=== PATIENT | male | born 1990 | race Caucasian/White ===

== ENCOUNTER 2024-06-06 10:54 | Emergency (ER) | payer BC, SELFPAY ==
[2024-06-06 11:07] VITALS: BP 138/70; PULSE 72; RESP 18; TEMP 38.1; O2SAT 99
--- NOTE | 2024-06-06 11:25 | ED.URI ---
HPI - URI/Sore Throat General Chief Complaint: Upper Respiratory Infection Stated Complaint: Cough/Sore Throat Time Seen by Provider: 06/06/24 11:25 History of Present Illness HPI Narrative: 34 y/o male presented for c/o nasal congestion, sore throat, cough x3 days. Endorses cough is productive. Denies sob, wheezing, n/v/d/f/c. Taking Mucinex and Sudafed for symptoms. Related Data Allergies Allergy/AdvReac Type Severity Reaction Status Date / Time No Known Allergies Allergy Verified 06/06/24 11:17 Review of Systems Review of Systems: CONSTITUTIONAL: Denies body aches, fever, chills, or sweats. EYES: Denies visual changes, redness, or discharge. ENT: reports rhinorrhea, congestion, sore throat CARDIOVASCULAR: Denies chest pain, palpitations, or edema. RESPIRATORY: reports cough Denies dyspnea. GASTROINTESTINAL: Denies abdominal pain, nausea, vomiting, or diarrhea. SKIN: Denies rash MUSCULOSKELETAL: Denies back pain, joint pain, or myalgia. NEUROLOGIC: Denies headache Exam Narrative: GENERAL: mildly Ill-appearing, no acute distress. EYES: conjunctivae clear ENT: Mucous membranes moist. Right TM pearly silva with normal light reflex; Left TM erythematous, bulging and intact; canal not erythematous, no drainage no tragal tenderness. Oropharynx erythematous without lesions. Tonsils not enlarged and without exudate. No drooling, no hoarseness, no trismus, uvula midline. No tripod positioning, hot potato voice, or soft palate swelling. NECK: Supple. No lymphadenopathy CHEST: Clear to auscultation, breath sounds equal. No respiratory distress, speaks in full sentences. HEART: Regular rate and rhythm. No murmur heard. SKIN: Warm, dry, no rash. NEURO: Alert and oriented x3. Course Course Emergency Course: Patient is aware of diagnosis, understands and agrees to treatment plan. Anticipatory guidance given. Patient agrees to follow-up as directed and is aware of reasons to seek care at the emergency department. Portions of this record may have been created with voice recognition software Level of Care: Express Care Visit Vital Signs Vital signs: Vital Signs Temperature 100.5 F H 06/06/24 11:07 Pulse Rate 72 06/06/24 11:07 Respiratory Rate 18 06/06/24 11:07 Blood Pressure 138/70 06/06/24 11:07 Pulse Oximetry 99 06/06/24 11:07 Temperature 100.5 F H 06/06/24 11:07 Pulse Rate 72 06/06/24 11:07 Respiratory Rate 18 06/06/24 11:07 Blood Pressure 138/70 06/06/24 11:07 Pulse Oximetry 99 06/06/24 11:07 MDM - URI/Sore Throat MDM Narrative Medical decision making narrative: Neg strep result reviewed with pt. Noted AOM on exam. Advise supportive treatments. Patient is appropriate for outpatient treatment and follow-up. Differential Diagnosis Differential diagnosis: Likely upper respiratory infection, viral infection and pharyngitis Lab Data Labs: Lab Results 06/06/24 Range/Units 11:30 POC Grp A Strep Screen Negative (Negative) Discharge Plan Discharge Clinical Impression: Otitis media, Bronchitis Patient Disposition: Home, Self-Care Condition: Stable Instructions: Antibiotic Form, Ear Infection (ED), Acute Bronchitis (ED) Additional Instructions: Rapid strep swab was negative today You will be notified in a few days if the culture comes back positive for strep if symptoms are due to a viral illness, it is not treated with antibiotics. Viral symptoms can be present for up to 10-14 days. Acute bronchitis can be contagious because it is usually caused by infection with a virus or bacteria. It is usually for a few days but you can be contagious for up to one week. Avoid crowds until you do not have a fever for 24 hours and symptoms are improved Take medication as directed Recommend Flonase spray and Zyrtec (or Claritin/Peg) over the counter Cough syrup may cause drowsiness; avoid driving or take it at night time. Tylenol 1000mg every 8 hours as needed for pain Symptomatic treatment includes: Smoking cessation, rest, fluids, and increase humidity of the air at home. Follow up with your primary care provider as needed in 1 week Go to the ER for worsening symptoms or concerns Prescriptions: New methylprednisolone [Medrol (Andrew)] 4 mg tablets,dose pack See Rx Instructions .ROUTE .COMPLEX Qty: 21 0RF Rx Instructions: orally per package directions amoxicillin-pot clavulanate 875-125 mg tablet 1 tablet PO Q12H 7 Days Qty: 14 0RF Follow-up/Referrals: Quinten,Parag Lucero MD [Primary Care Provider] - Stand Alone Forms: Work/School Release IP
[2024-06-06 11:32] LABS: EDSTREPNEGPOS1 Negative (Negative)
== END 2024-06-06 11:36 | disposition home or self-care (01) ==
PROVIDERS: Emergency Provider Nurse Practitioner Family; PCP Family Medicine
DX: H66.92 Otitis media, unspecified, left ear (principal); J40 Bronchitis, not specified as acute or chronic
CPT/HCPCS: 87081; 87880; 99213; G0463

== ENCOUNTER 2024-08-04 17:03 | Emergency (ER) | payer BC, SELFPAY ==
--- OUTSIDE RECORDS SUMMARY | 2024-08-04 17:06 | XMS_ITS | Data Portability ---
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 Documentation was reviewed, and I agree w/resident's note. Dr. Shipley [email or web address] Not available 02/20/2024 06:56:03 Plan of Treatment Reminders Order Date Submit Date Provider Last Modified By Organization Details Last Modified Time Details Appointments None recorded. Lab CBC w/ auto diff 2023 024 [facility], [address] [place] [address], [id number], 4 08:24:50 BMP, serum or plasma 2023 024 [facility], [address] [place] [address], [id number], 4 08:24:49 lipid panel, serum 2023 024 [facility], [address] [place] [address] 2, [place], [address], 4 08:24:48 Hepatitis C IgG Ab, qual, serum 2023 024 [facility], [address] [place] [address] [address], [address], 4 08:24:44 HIV 1 + 2, meaningful use set 2023 024 [facility], [address] [facility], [facility] [address], [place], [address], 4 08:24:45 Referral None recorded. Procedures None recorded. Surgeries None recorded. Imaging None recorded. Medication Orders hydroxyzin e HCl 25 mg tablet 2023 024 [id number], [address], [place], [place], [id number], 5 09:01:43 sildenafil 25 mg tablet 2023 024 [id number], [address], [place], [place], [id number], 5 09:01:54 Patient TargetsNo targets recorded. Patient Instructions Encounter Date Encounter Id Patient Instructions Last Modified By Organization Details Last Modified Time 02/18/2024 [id number] When You Want to Lose Weight: Care Instructions [email or web address] Not available 02/18/2024 16:06:13 HIV testing: car e instructions [email or web address] Not available 02/18/2024 16:06:13 Reason for Referral None Reported. Results Created Date Observation Date Name Description Value Unit Range Abnormal Flag Note LastModifiedBy Organization Detail LastModifiedTime 03/03/2003/04/2024 INTER PRETA TION: interpretati on: Commen t Not infec gena with HCV unles s early or acute infec tion is suspe cted (whic h may be delay ed in an immun ocomp romis ed indiv idual ), or other evide nce exist s to indic ate HCV infec tion. Not Available [facility] ([facility]) [address] [facility], [place], [address], 03/04/2024 08:24:43 03/03/20 24 03/04/2024 HCV ANTIB RATNA RFX TO QUANT PCR HCV Ab NON REACTI VE nonrea ctive Not Available [facility] ([facility]) [address] [place], [address], 03/04/2024 08:24:44 03/03/20 24 03/04/2024 HIV AB/P2 4 AG WITH REFLE X HIV Ab/P24 Ag screen NON REACTI VE nonrea ctive HIV-1 /HIV- 2 antib odies and HIV-1 p24 antig en were NOT detec gena. There is no labor atory evide nce of HIV infec tion. HIV Negat ron Not Available [facility] ([facility]) [address] [place], [address], 03/04/2024 08:24:45 03/03/20 24 03/04/2024 LIPID PANEL cholesterol, total 236 mg/dL 100-19 9 above high normal Not Available [facility] ([facility]) [address] [place], [address], 03/04/2024 08:24:48 03/03/20 24 03/04/2024 LIPID PANEL triglyceride s 495 mg/dL 0-149 above high normal Not Available [facility] ([facility]) [address] [place], [address], 03/04/2024 08:24:48 03/03/20 24 03/04/2024 LIPID PANEL HDL cholesterol 29 mg/dL >39 below low normal Not Available [facility] ([facility]) [address] [place], [address], 03/04/2024 08:24:48 03/03/20 24 03/04/2024 LIPID PANEL VLDL cholesterol gaetano 88 mg/dL 5-40 above high normal Not Available [facility] ([facility]) [address] [place], [address], 03/04/2024 08:24:48 03/03/20 24 03/04/2024 LIPID PANEL LDL chol calc ([facility]) 119 mg/dL 0-99 above high normal Not Available [facility] ([facility]) [address] [facility] [place], [address], 03/04/2024 08:24:48 03/03/20 24 03/04/2024 BASIC METAB OLIC PANEL (8) glucose 94 mg/dL 70-99 Not Available [facility] ([facility]) [address] [facility] [place], [address], 03/04/2024 08:24:49 03/03/20 24 03/04/2024 BASIC METAB OLIC PANEL (8) BUN 12 mg/dL 6-20 Not Available [facility] ([facility]) [address] [facility] [place], [address], 03/04/2024 08:24:49 03/03/20 24 03/04/2024 BASIC METAB OLIC PANEL (8) creatinine 1.05 mg/dL 0.76-1 .27 Not Available [facility] ([facility]) [address] [place], [address], 03/04/2024 08:24:49 03/03/2003/04/2024 BASIC METAB OLIC PANEL (8) eGFR 96 mL/mi n/1.7 3 >59 Not Available [facility] ([facility]) [address] [place], [address], 03/04/2024 08:24:49 03/03/2003/04/2024 BASIC METAB OLIC PANEL (8) BUN/creatini ne ratio 11 9-20 Not Available [facility] ([facility]) [address] [place], [address], 03/04/2024 08:24:49 03/03/20 24 03/04/2024 BASIC METAB OLIC PANEL (8) sodium 138 mmol/ L 134-14 4 Not Available [facility] ([facility]) [address] [place], [address], 03/04/2024 08:24:49 03/03/2003/04/2024 BASIC METAB OLIC PANEL (8) potassium 4.3 mmol/ L 3.5-5. 2 Not Available [facility] ([facility]) [address] [place], [address], 03/04/2024 08:24:49 03/03/20 24 03/04/2024 BASIC METAB OLIC PANEL (8) chloride 99 mmol/ L 96-106 Not Available [facility] ([facility]) [address] [place], [address], 03/04/2024 08:24:49 03/03/2003/04/2024 BASIC METAB OLIC PANEL (8) carbon dioxide, total 24 mmol/ L 20-29 Not Available [facility] ([facility]) [address] [facility], [place], [address], 03/04/2024 08:24:49 03/03/2003/04/2024 BASIC METAB OLIC PANEL (8) calcium 9.7 mg/dL 8.7-10 .2 Not Available [facility] ([facility]) [address] [place], [address], 03/04/2024 08:24:49 03/03/2003/04/2024 CBC WITH DIFFE RENTI AL/PL ATELE T WBC 6.5 x10e3 /uL 3.4-10 .8 Not Available [facility] ([facility]) [address] [place], [address], 03/04/2024 08:24:50 03/03/2003/04/2024 CBC WITH DIFFE RENTI AL/PL ATELE T RBC 5.72 x10e6 /uL 4.14-5 .80 Not Available [facility] ([facility]) [address] [place], [address], 03/04/2024 08:24:50 03/03/2003/04/2024 CBC WITH DIFFE RENTI AL/PL ATELE T hemoglobin 17.0 g/dL 13.0-1 7.7 Not Available [facility] ([facility]) [address] [place], [address], 03/04/2024 08:24:50 03/03/2003/04/2024 CBC WITH DIFFE RENTI AL/PL ATELE T hematocrit 51.7 % 37.5-5 1.0 above high normal Not Available [facility] ([facility]) [address] [place], [address], 03/04/2024 08:24:50 03/03/2003/04/2024 CBC WITH DIFFE RENTI AL/PL ATELE T MCV 90 fL 79-97 Not Available [facility] ([facility]) [address] [place], [address], 03/04/2024 08:24:50 03/03/2003/04/2024 CBC WITH DIFFE RENTI AL/PL ATELE T MCH 29.7 pg 26.6-3 3.0 Not Available [facility] ([facility]) [address] [place], [address], 03/04/2024 08:24:50 03/03/2003/04/2024 CBC WITH DIFFE RENTI AL/PL ATELE T MCHC 32.9 g/dL 31.5-3 5.7 Not Available [facility] ([facility]) [address] [place], [address], 03/04/2024 08:24:50 03/03/2003/04/2024 CBC WITH DIFFE RENTI AL/PL ATELE T RDW 13.1 % 11.6-1 5.4 Not Available [facility] ([facility]) [address] [place], [address], 03/04/2024 08:24:50 03/03/2003/04/2024 CBC WITH DIFFE RENTI AL/PL ATELE T platelets 224 x10e3 /uL 150-45 0 Not Available [facility] ([facility]) [address] [facility], [place], [address], 03/04/2024 08:24:50 03/03/20 24 03/04/2024 CBC WITH DIFFE RENTI AL/PL ATELE T neutrophils 63 % notest ab. Not Available [facility] ([facility]) [address] [facility], [place], [address], 03/04/2024 08:24:50 03/03/20 24 03/04/2024 CBC WITH DIFFE RENTI AL/PL ATELE T lymphs 28 % notest ab. Not Available [facility] ([facility]) [address] [facility], [place], [address], 03/04/2024 08:24:50 03/03/20 24 03/04/2024 CBC WITH DIFFE RENTI AL/PL ATELE T monocytes 6 % notest ab. Not Available [facility] ([facility]) [address] [facility], [place], [address], 03/04/2024 08:24:50 03/03/20 24 03/04/2024 CBC WITH DIFFE RENTI AL/PL ATELE T eos 2 % notest ab. Not Available [facility] ([facility]) [address], [place], [address], 03/04/2024 08:24:50 03/03/20 24 03/04/2024 CBC WITH DIFFE RENTI AL/PL ATELE T basos 1 % notest ab. Not Available [facility] ([facility]) [address] [facility], [place], [address], 03/04/2024 08:24:50 03/03/20 24 03/04/2024 CBC WITH DIFFE RENTI AL/PL ATELE T neutrophils (absolute) 4.1 x10e3 /uL 1.4-7. 0 Not Available [facility] ([facility]) [address] [facility], [place], [address], 03/04/2024 08:24:50 03/03/20 24 03/04/2024 CBC WITH DIFFE RENTI AL/PL ATELE T lymphs (absolute) 1.8 x10e3 /uL 0.7-3. 1 Not Available [facility] ([facility]) [address], [place], [address], 03/04/2024 08:24:50 03/03/20 24 03/04/2024 CBC WITH DIFFE RENTI AL/PL ATELE T monocytes(ab solute) 0.4 x10e3 /uL 0.1-0. 9 Not Available [facility] ([facility]) [address], [place], [address], 03/04/2024 08:24:50 03/03/20 24 03/04/2024 CBC WITH DIFFE RENTI AL/PL ATELE T eos (absolute) 0.1 x10e3 /uL 0.0-0. 4 Not Available [facility] ([facility]) [address], [place], [address], 03/04/2024 08:24:50 03/03/20 24 03/04/2024 CBC WITH DIFFE RENTI AL/PL ATELE T baso (absolute) 0.0 x10e3 /uL 0.0-0. 2 Not Available [facility] ([facility]) [address], [place], [address], 03/04/2024 08:24:50 03/03/20 24 03/04/2024 CBC WITH DIFFE RENTI AL/PL ATELE T immature granulocytes 0 % notest ab. Not Available [facility] ([facility]) [address], [place], [address], 03/04/2024 08:24:50 03/03/20 24 03/04/2024 CBC WITH DIFFE RENTI AL/PL ATELE T immature grans (abs) 0.0 x10e3 /uL 0.0-0. 1 Not Available [facility] ([facility]) [address], [place], [address], 03/04/2024 08:24:50 Result Notes None recorded. Problems Name Problem SNOMED Code Status Onset Date Resolution Date Notes Provider Name and Address Organization Details Recorded Time Asthma 899004663 Active 025 Josefina Cornell MD Attn: Accounting, [address], [place], [address], [facility] 07/29/2024 09:28:49 Problem Notes None recorded. Medical Equipment None Reported. Allergies No known drug allergies Medications Name Sig Start Date Stop Date Status Note LastModified by Organization Details LastModified Time omeprazole 40 mg capsule,de layed release Take 1 capsule every day by oral route for 30 days. 2024 active Not Available Not Available Not Avai lable sildenafil 25 mg tablet Take 1 tablet as needed by oral route, for erectile dysfuncti on. 2023 active pt states he is not taking any medicatio n Not Available Not Available Not Available hydroxyzin e HCl 25 mg tablet TAKE 1 TABLET BY MOUTH THREE TIMES DAILY FOR ITCHY RASH active pt is not taking Not Available Not Available Not Available propranolo l 20 mg tablet Take 1 tablet twice a day by oral route. active pt is not taking Not Available Not Available Not Available Vitals Date Recorded Body height Provider Name an d Address Organization Details Last Updated DateTime 02/18/2024 180.34 cm SARA Babcock [facility] 2023 14:53:00 Date Recorded Body mass index (BMI) Body weight Provider Name and Address Organization Details Last Updated DateTime 02/18/2024 33.8 kg/m2 397250.71 g SARA Babcock [facility] 02/18/2024 14:53:05 Date Recorded Respiratory rate Provider Name a nd Address Organization Details Last Updated DateTime 02/18/2024 20 /min SARA Babcock [facility] 02/18/2024 14:53:31 Date Recorded Body temperature Provider Name a nd Address Organization Details Last Updated DateTime 02/18/2024 98.4 [degF] SARA Babcock [place] [facility] 02/18/2024 15:03:48 Date Recorded Heart rate Provider Name an d Address Organization Details Last Updated DateTime 02/18/2024 65 /min SARA Babcock - [facility] 2023 15:03:51 Date Recorded Oxygen saturation Oxygen saturation in Arterial blood by Pulse oximetry Provider Name and Address Organization Details Last Updated DateTime 02/18/2024 95 % 95 % SARA Babcock - [place] 02/18/2024 15:04:10 Date Recorded Body height Provider Name an d Address Organization Details Last Updated DateTime 07/29/2024 180.34 cm GUS Johnson - [facility] 07/29/19 09:01:14 Date Recorded Body mass index (BMI) Body weight Provider Name and Address Organization Details Last Updated DateTime 07/29/2024 34.2 kg/m2 017473.53 g GUS Johnson - [facility] 07/29/2024 09:02:56 Date Recorded Body temperature Provider Name a nd Address Organization Details Last Updated DateTime 07/29/2024 97.1 [degF] GUS Johnson - [facility] 025 09:03:55 Date Recorded Heart rate Provider Name an d Address Organization Details Last Updated DateTime 07/29/2024 66 /min GUS Johnson - [facility] 07/29/19 25 09:04:06 Date Recorded Respiratory rate Provider Name a nd Address Organization Details Last Updated DateTime 07/29/2024 18 /min GUS Johnson - [facility] 07/29/19 25 09:04:09 Date Recorded Oxygen saturation Oxygen saturation in Arterial blood by Pulse oximetry Provider Name and Address Organization Details Last Updated DateTime 07/29/2024 97 % 97 % GUS Johnson - [facility] 07/29/2024 09:06:38 Date Recorded Systolic blood pressure Diastolic blood pressure Provider Name and Address Organization Details Last Updated DateTime 02/18/2024 119 mm[Hg] 76 mm[Hg] SARA Babcock [place] [facility] 02/18/2024 15:03:54 Date Recorded Systolic blood pressure Diastolic blood pressure Provider Name and Address Organization Details Last Updated DateTime 07/29/2024 126 mm[Hg] 81 mm[Hg] Hossein Sandra [place] [facility] 07/29/2024 09:04:05 Social History Question Answer Notes LastModified by Organizat ion Details LastModified Time Tobacco Smoking Status Current Every Day Smoker Savanah RocheSARA hoskins null, [place] - [place] 02/18/2024 14:59:19 What Is Your Level Of Alcohol Consumption? None Information not available 07/29/2024 In The 14 Days Before Symptom Onset, Have You Had Close Contact With A Laboratory-confir med COVID-19 While That Case Was Ill? No Information not available 02/18/2024 In The 14 Days Before Symptom Onset, Have You Had Close Contact With A Person Who Is Under Investigation For COVID-19 While That Person Was Ill? No Information not available 02/18/2024 Have You Been To An Area Known To Be High Risk For COVID-19? No Information not available 02/18/2024 Do You Or Have You Ever Used E-cigarettes Or Vape? Current User Of Electronic Cigarettes Vapes Every Once And A While Information not available 02/18/2024 What Was The Date Of Your Most Recent Tobacco Screening? 07/29/2024 Information not available 07/29/2024 At What Age Did You Start Smoking Tobacco? 14 Information not available 02/18/2024 Do You Or Have You Ever Used Smokeless Tobacco? Never Used Smokeless Tobacco Information not available 02/18/2024 How Much Tobacco Do You Smoke? 1 PPD Information not available 02/18/2024 Do You Use Any Illicit Or Recreational Drugs? No Information not available 02/18/2024 Has Tobacco Cessation Counseling Been Provided? Yes Information not available 02/18/2024 On What Date Was Tobacco Cessation Counseling Provided? 07/29/2024 Information not available 07/29/2024 Do You Or Have You Ever Used Any Other Forms Of Tobacco Or Nicotine? Yes Information not available 02/18/2024 Sex: Male Functional Status None recorded. Mental Status None recorded. Family History Relationship Description Onset Age of this Age Resolved Age Notes LastModified by Organization Details LastModified Time Mother Hypertensive disorder [email or web address] Not available 02/17 14:58:24 Mother Malignant tumor of colon [email or web address] Not available 02/17 14:59:00 Sister Diabetes mellitus [email or web address] Not available 02/17 14:58:32 Maternal Grandmother Hypertensive disorder [email or web address] Not available 02/17 14:58:40 Notes:07/29/24 Medical History Condition Response Coronary Artery Disease N Other N High Blood Pressure Y Atrial Fibrillation N Kidney or Bladder Problems N Thyroid Problems N GI Problems N Depression N COPD N Blood Clots N Have you had a mammogram in the last yea r? N Skin Problems N Anemia N Heart Attack ([place]) N Anxiety Disorder N Diabetes N Muscle, Joint, or Bone Problems N Seizures/Epilepsy N Have you had a colonoscopy in the last 1 0 years? N Acid Reflux (GERD) N Cancer N Stroke N Asthma N Allergies N Have you had a PSA blood test in the las t year? N High Cholesterol N Hepatitis N Liver Disease N Headaches N Heart Failure N Osteoporosis N Past Encounters Encounter ID Performer Location Encounter Start Date Encounter Closed Date Diagnosis/Indication Diagnosis SNOMED-CT Code Diagnosis ICD10 Code Diagnosis Note [id number] MD Darius Cox 14 IM 4 [facility] [address] [place] [id number] 02/18/2024 14:39:11 02/20/2024 10:24:56 Adult health examination 482735182 Z00.00 Pt re-establi cassidy w/ a primary doctorPt to schedule follow up as needed HIV screening 853426470 Z11.4 No documentat ion of prior HIV screeningP [place]: One time HIV screen Hepatitis C screening 41 4859954 Z11.59 No documentat ion of prior HCV screeningP [place]: One time HCV screen Obesity 439344160 E66.9 BMI of 33.8, pt has not seen doctor regularly for a few yearsPlan: Establish baseline labs including CBC, BMP, and lipid panel Pruritic rash 88821889 L 28.2 Likely hypersensi tivity rashPlan: hydroxyzin e 25 mg PO TID PRN, if rash persists or worsens, pt can return to office Erectile dysfunction 847 682568 F52.21 Began in senior care, likely psychologi gaetano in nature. Occasional morning erections suggests intact functional ityPlan: Trial of sildenafil 25 mg Health Concerns Section Related Observation LastModified by Organization Detai ls LastModified Time None Recorded Concern Status LastModified by Organization Details LastModified Time None Recorded Advance Directives Directive None Recorded Payers Encounter Date Sequence Insurance Name Policy Number Policy Dale Covered Member ID Dale Member ID Guarantor Name 02/18/2024 1 [facility] Jac Luisa Bolden [id number] Jac Bolden Notes Date Note Type Note Provider Name and Address Organization Details Recorded Time 02/18/2024 text/html HPI: Patient is a 33 y/o male with a PMH of HTN and asthma. Here to establish care with me. Pt reported that he used to have headaches that started at the top of his head in the midline. His BP at the time would be in the 180s/90s. While in senior care, he was started on propranolol, which helped both of these issues. Pt denies headaches today. Pt complains of ED that began while in senior care. He is able to have morning erections some of the time and he is still able to ejaculate. Pt denies dysuria, hematuria, abdominal pain, anxiety, or depression. Pt also has a new rash since leaving senior care on arms, chest, and neck. The rash is itchy but not painful. There is no bleeding or discharge. Pt attributes the rash to new soaps since leaving senior care about 1 month ago. Pt denies fever, chills, headaches, dizziness, SOB, chest pain, or palpitations. 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
--- OUTSIDE RECORDS SUMMARY | 2024-08-04 17:06 | XMS_ITS | Clinical Summary ---
Author Organization [facility] Address [address] [place] [address] Phone Care Team Providers Care Transport Medic Name Role Phone Provider, None Primary Care Provider Unavailabl e Allergies Active Allergy Reactions Criticality Noted Date Comments Tramadol Nausea 07/28/2015 Medications cyclobenzaprine (FLEXERIL) 10 MG Tablet Take 1 Tab by mouth 3 times daily as needed for Muscle spasms for up to 15 doses. 15 Tab 0 07/28/2015 Active Social History Tobacco Use Types Packs/Day Years Used Date Smoking Tobacco: Every Day Cigarettes Smokeless Tobacco: Never Alcohol Use Standard Drinks/Week Comments Never 0 (1 standard drink = 0.6 oz pur e alcohol) Sex and Gender Information Value Date Recorded Sex Assigned at Not on file Legal Sex Male 11:50 PM CDT Gender Identity Not on file Sexual Orientation Not on file Last Filed Vital Signs Vital Sign Reading Time Taken Comments Blood Pressure 121/78 02/09/2021 8:39 PM CDT Pulse 67 02/09/2021 8:39 PM CDT Temperature 36.8 ??C (98.2 ??F) 02/09/2021 2:52 PM CD T Respiratory Rate 14 02/09/2021 8:39 PM CDT Oxygen Saturation 100% 02/09/2021 8:39 PM CDT Inhaled Oxygen Concentration - - Weight 68 kg (150 lb) 02/09/2021 2:52 PM CDT Height 180.3 cm (5' 11 ) 02/09/2021 2:52 PM CDT Body Mass Index 20.92 02/09/2021 2:52 PM CDT Plan of Treatment Health Maintenance Due Date Last Done Comments Hepatitis C Virus (HCV) Screening 1990 TdaP Immunization 1990 Hepatitis B Immunization (1 of 3 - 19+ 3-dose series) 2009 Influenza Immunization (#1) 2024 SARS-COV-2 Immunization (3 - 2023- season) 2024 02/07/2022, 12/22/2021 Respiratory Syncytial Virus (RSV) Immunization (Adult) (1 - 1-dose 75+ series) 2065 Meningococcal Immunization (ACWY) Aged Out No longer eligible b ased on patient's age to complete this topic Pneumococcal Immunization Combined Aged Out No longer eligible b ased on patient's age to complete this topic Rotavirus Immunization Aged Out No lo nger eligible based on patient's age to complete this topic Insurance SONIA MENDEZ [id number] Care Teams Transport Medic Relationship Specialty Start Date End Date Provider, None [place] PCP - General 07/28/15
--- OUTSIDE RECORDS SUMMARY | 2024-08-04 17:06 | XMS_ITS | Patient Health Summary ---
Author Organization [facility] Address [address] [place] [address] Care Team Providers Care Group Leader [employer]iconductor Processing Name Role Phone Unavailable Primary Care Provider Unavailabl e Note from [facility],non-owned Affiliates and Associated Physician Practices is amultiple site organization consisting of ambulatory clinics and hospital sitesin [place], [place], [place] and [place]. This disclosure is being madepursuant to the Care Everywhere program and may not contain all information available regarding this patient. Last updated 18.[facility] [employer] Allergies No known active allergies Medications * Be aware that medications may not be up to date on this document. Alwaysverify current medications with the patient. * oxymetazoline (AFRIN) 0.05 % nasal spray(Started 02/10/2021) [place] 1 (one) spray into each nostril 2 times daily * chlorhexidine (PERIDEX) 0.12 % solution(Started 02/10/2021) Swish and spit 2 times daily * oxyCODONE-acetaminophen (PERCOCET) 5-325 MG tablet(Started 02/10/2021) Take 1 (one) tablet by mouth every 6 hours as needed for Pain Social History Tobacco Use Types Packs/Day Years Used Date Smoking Tobacco: Never Assessed Sex and Gender Information Value Date Recorded Sex Assigned at Not on file Gender Identity Not on file Sexual Orientation Not on file Last Filed Vital Signs Vital Sign Reading Time Taken Comments Blood Pressure 118/80 02/10/2021 5:00 AM CDT Pulse 60 02/10/2021 5:00 AM CDT Temperature 36.9 ??C (98.4 ??F) 02/10/2021 5:00 AM CD T Respiratory Rate 14 02/10/2021 5:00 AM CDT Oxygen Saturation 99% 02/10/2021 5:00 AM CDT Inhaled Oxygen Concentration - - Weight 88.5 kg (195 lb) 02/09/2021 9:48 PM CDT Height 180.3 cm (5' 11 ) 02/09/2021 9:48 PM CDT Body Mass Index 27.2 02/09/2021 9:48 PM CDT Procedures * CT FACIAL BONES WO CONTRAST(Performed 02/10/2021) Performed for Facial injury, initial encounter * URINE DRUG SCREEN IMMUNOASSAY(Performed 02/09/2021) * URINALYSIS REFLEX TO MICROSCOPIC NO CULTURE(Performed 02/09/2021) * COMPREHENSIVE METABOLIC PANEL(Performed 02/09/2021) * CBC W AUTO DIFFERENTIAL(Performed 02/09/2021) Results * CT FACIAL BONES WO CONTRAST (02/10/2021 3:02 AM CDT) Anatomical Region Laterality Modality Head Computed Tomogra phy 02/10/2021 1:37 PM CDT Impressions 02/10/2021 3:31 PM CDT IMPRESSION: 1.Multiple right-sided acute facial bone fractures in [facility] [place] fracture pattern as described above. 2.Mild to moderate right periorbital and right cheek soft tissue swelling with associated subcutaneous gas. Opacities in the right maxillary sinus multiple air locules likely secondary to blood products. 3.Extensive periodontal disease and multiple periapical lucencies. Dictated by Hesham Whitaker MD (Mobile Application Tester) I, Dr. ENEDELIA JOLLY have personally reviewed and interpreted this examination/study. This report was electronically signed by ENEDELIA JOLLY ??on 02/10/2021 3:31 PM . Narrative 02/10/2021 3:31 PM CDT EXAMINATION: Computed tomography (CT) of the maxillofacial bones, orbits, and paranasal sinuses without contrast HISTORY: S09.93XA: Facial injury, initial encounter TECHNIQUE: CT of the maxillofacial bones, orbits, and paranasal sinuses was performed without contrast according to standard protocol. COMPARISON: No prior study is available for comparison at the time of this dictation. FINDINGS: Multiple acute fractures as follows: *There is an acute, mildly displaced fracture of the right coronoid process of the mandible. The temporomandibular joint is normal in alignment. *There is acute, mildly depressed fractures of the right zygomatic arch. *There is an acute, mildly displaced fracture of the right lateral orbital wall. *There is an acute, mildly displaced fracture of the right inferior orbital wall without evidence of fat herniation or ocular muscle entrapment. *There is an acute, mildly displaced comminuted fracture of the lateral wall the right maxillary sinus. *There is an acute, mildly displaced, comminuted fracture of the anterior wall right maxillary sinus. *There is an acute, nondisplaced fracture of the medial wall of the right maxillary sinus. There is no significant intraorbital hemorrhage. The globe is intact. There is associated small to moderate soft tissue swelling involving the right cheek and right orbit. There is subcutaneous gas along the anterior right cheek soft tissue. There is opacification of the right maxillary sinus with multiple air locules, likely blood products. The remaining paranasal sinuses are clear. The bilateral mastoid air cells are well aerated. The visualized intracranial contents are grossly within normal limits. There is extensive periodontal disease with multiple periapical lucencies. Procedure Note Enedelia Jolly MD - 02/10/2021 EXAMINATION: Computed tomography (CT) of the maxillofacial bones,orbits, and paranasal sinuses without contrast HISTORY: S09.93XA: Facial injury, initial encounter TECHNIQUE: CT of the maxillofacial bones, orbits, and paranasal sinuses was performed without contrast according to standard protocol. COMPARISON: No prior study is available for comparison at the time ofthis dictation. FINDINGS: Multiple acute fractures as follows: *There is an acute, mildly displaced fracture of the right coronoid process of the mandible. The temporomandibular joint is normal in alignment. *There is acute, mildly depressed fractures of the right zygomatic arch. *There is an acute, mildly displaced fracture of the right lateralorbital wall. *There is an acute, mildly displaced fracture of the right inferior orbital wall without evidence of fat herniation or ocular muscle entrapment. *There is an acute, mildly displaced comminuted fracture of the lateral wall the right maxillary sinus. *There is an acute, mildly displaced, comminuted fracture of theanterior wall right maxillary sinus. *There is an acute, nondisplaced fracture of the medial wall of theright maxillary sinus. There is no significant intraorbital hemorrhage. The globe is intact. There is associated small to moderate soft tissue swelling involving the right cheek and right orbit. There is subcutaneous gas along theanterior right cheek soft tissue. There is opacification of the right maxillary sinus with multiple air locules, likely blood products. The remaining paranasal sinuses are clear. The bilateral mastoid aircells are well aerated. The visualized intracranial contents are grosslywithin normal limits. There is extensive periodontal disease with multiple periapicallucencies. IMPRESSION: 1.Multiple right-sided acute facial bone fractures in [facility] [place] fracturepattern as described above. 2.Mild to moderate right periorbital and right cheek soft tissueswelling with associated subcutaneous gas. Opacities in the right maxillary sinus multiple air locules likely secondary to blood products. 3.Extensive periodontal disease and multiple periapical lucencies. Dictated by Hesham Whitaker MD (Mobile Application Tester) I, Dr. ENEDELIA JOLLY have personally reviewed and interpreted this examination/study. This report was electronically signed by ENEDELIA JOLLY on 02/10/2021 3:31 PM. Jay Ledezma MD CT ORDERABLES * (ABNORMAL) URINALYSIS REFLEX TO MICROSCOPIC NO CULTURE (02/09/2021 11:16 PM CDT) Color UA Straw Straw, Yellow 02/09/2021 11:28 PM [facility] Clarity UA Clear Clear 02/09/2021 11:[address] [facility] Specific Worth UA 1.003(L) 1.005 - 1.030 02/09/2021 11:28 PM [facility] pH UA 7.0 5.0 - 8.0 pH 02/09/2021 11:[address] [facility] Protein UA Negative Negative 02/09/2021 11:[address] [facility] Glucose UA Negative Negative 02/09/2021 11:[address] [facility] Ketone UA Negative Negative 02/09/2021 11:[address] [facility] Bilirubin UA Negative Negative 02/09/2021 11:28 PM [facility] Blood UA 1+(A) Negative 02/09/2021 11:[address] [facility] Nitrite UA Negative Negative 02/09/2021 11:28 PM [facility] Leukocyte Esterase Negative Negative 02/09/2021 11:28 PM [facility] Urobilinogen UA Negative Negative mg/dL 02/09/2021 11:28 PM T [facility] RBC UA 0-2 None Seen, 0-2, 3-5 /HPF 02/09/2021 11:28 PM [facility] WBC UA 0-5 None Seen, 0-5 /HPF 02/09/2021 11:28 PM T [facility] Squamous Epithelial Cells UA 0-2 None Seen, 0-2, 3-5 /HPF 02/09/2021 11:28 PM [facility] Transitional Epithelial Cells UA 0-2(A) None Seen /HPF 02/09/2021 11:28 PM [facility] Urine URINE SPECIMEN OBTAINED BY CLEAN CATCH PROCEDURE / Unknown Collection / Unknown 02/09/2021 11:16 PM CDT 02/09/2021 11:19 PM CDT [facility] - 02/09/2021 11:28 PM CDT Jay Ledezma MD LAB - URINALYSI S ORDERABLES [facility] [address] [place] [phone] [phone] * (ABNORMAL) CBC W AUTO DIFFERENTIAL (02/09/2021 11:16 PM CDT) WBC 10.5 3.5 - 10.5 10? 3 /uL 02/09/2021 11:25 PM [facility] RBC 4.97 4.30 - 5.70 10? 6 /uL 02/09/2021 11:25 PM [facility] Hemoglobin 14.4 12.0 - 17.6 g/dL 02/09/2021 11:25 PM [facility] Hematocrit 44.3 35.2 - 51.7 % 02/09/2021 11:25 PM [facility] MCV 89.1 80.7 - 98.3 fL 02/09/2021 11:25 PM [facility] MCH 29.0 26.7 - 34.0 pg 02/09/2021 11:25 PM [facility] MCHC 32.5 30.8 - 35.9 g/dL 02/09/2021 11:25 PM [facility] Platelet Count 218 150 - 400 10? 3 /uL 02/09/2021 11:25 PM [facility] RDW-SD 41.5 36.0 - 50.0 fL 02/09/2021 11:25 PM [facility] RDW-CV 12.5 11.2 - 14.8 % 02/09/2021 11:25 PM [facility] MPV 10.2 9.4 - 12.9 fL 02/09/2021 11:25 PM [facility] nRBC Absolute 0.00 0 10? 3 /uL 02/09/2021 11:25 PM [facility] nRBC Auto 0.0 0 /100 WBC 02/09/2021 11:25 PM [facility] Neutrophils % 93.1(H) 35.0 - 70.0 % 02/09/2021 11:25 PM [facility] Lymphocytes % 5.5(L) 20.0 - 43.0 % 02/09/2021 11:25 PM [facility] Monocytes % 0.9(L) 5.0 - 13.0 % 02/09/2021 11:25 PM [facility] Eosinophils % 0.1 0.0 - 6.0 % 02/09/2021 11:25 PM [facility] Basophil % 0.2 0.0 - 2.0 % 02/09/2021 11:25 PM [facility] Neutrophils Absolute 9.7(H) 1.6 - 7.0 10? 3 /uL 02/09/2021 11:25 PM [facility] Lymphocyte Absolute 0.6(L) 1.1 - 3.9 10? 3 /uL 02/09/2021 11:25 PM [facility] Monocytes Absolute 0.09(L) 0.26 - 1.07 10? 3 /uL 02/09/2021 11:25 PM [facility] Eosinophils Absolute 0.01 0.00 - 0.47 10? 3 /uL 02/09/2021 11:25 PM [facility] Basophils Absolute 0.02 0.00 - 0.08 10? 3 /uL 02/09/2021 11:25 PM [facility] Immature Granulocytes % 0.2 0.0 - 1.0 % 02/09/2021 11:25 PM [facility] Immature Granulocytes Absolute 0.02 02/09/2021 11:25 PM [facility] Blood BLOOD SPECIMEN / Unknown Venipuncture / Unknown 02/09/2021 11:16 PM CDT 02/09/2021 11:21 PM CDT Jay Ledezma MD LAB - HEMATOLOG Y ORDERABLES [facility] [address] [place] [phone], [facility] [phone] * (ABNORMAL) COMPREHENSIVE METABOLIC PANEL (02/09/2021 11:16 PM CDT) BUN 10 7 - 26 mg/dL 02/09/2021 11:52 PM [facility] Creatinine 0.90 0.71 - 1.16 mg/dL 02/09/2021 11:52 PM [facility] Sodium 141 136 - 145 mmol/L 02/09/2021 11:52 PM [facility] Potassium 4.3 3.5 - 4.5 mmol/L 02/09/2021 11:52 PM [facility] Chloride 105 98 - 107 mmol/L 02/09/2021 11:52 PM [facility] CO2 27 22 - 29 mmol/L 02/09/2021 11:52 PM [facility] Glucose 144(H) 70 - 115 mg/dL 02/09/2021 11:52 PM [facility] Calcium 8.9 8.4 - 10.2 mg/dL 02/09/2021 11:52 PM [facility] Protein Total 7.0 6.0 - 8.3 g/dL 02/09/2021 11:52 PM [facility] Albumin 3.9 3.4 - 5.0 g/dL 02/09/2021 11:52 PM [facility] Bilirubin Total 0.4 0.2 - 1.2 mg/dL 02/09/2021 11:52 PM [facility] Alkaline Phosphatase 63 40 - 150 U/L 02/09/2021 11:52 PM [facility] ALT 15 5 - 55 U/L 02/09/2021 11:52 PM [facility] AST 21 5 - 34 U/L 02/09/2021 11:52 PM [facility] Anion Gap 13 8 - 18 02/09/2021 11:52 PM [facility] BUN/Creatinine Ratio 11 7 - 23 02/09/2021 11:52 PM [facility] Osmolality Calculated 294 270 - 300 mOsm/kg 02/09/2021 11:52 PM [facility] Albumin/Globulin Ratio 1.3 1.1 - 2.3 02/09/2021 11:52 PM [facility] eGFR by CKD-EPI >90 >=90 mL/min/1.7 3 m2 02/09/2021 11:52 PM [facility] Blood BLOOD SPECIMEN / Unknown Venipuncture / Unknown 02/09/2021 11:16 PM CDT 02/09/2021 11:20 PM [facility] Jay Ledezma MD LAB - CHEMISTRY ORDERABLES Performing Organization Address [facility]/State/ZIP Co de Phone Number [facility] [address] [place] [address], [facility] [phone] * (ABNORMAL) URINE DRUG SCREEN IMMUNOASSAY (02/09/2021 11:16 PM CDT) [facility] Amphetamines Screen Urine Positive(A) Negative : < 1000 ng/mL 02/09/2021 11:37 PM [facility] Comment: Positive urine amphetamine screening results should be confirmed by another generally accepted non-immunological method such as gas chromatography or mass spectrometry. ? Barbiturates Screen Urine Negative Negative : < 200 ng/mL 02/09/2021 11:37 PM [facility] Benzodiazepine Screen Urine Negative Negative : < 200 ng/mL 02/09/2021 11:37 PM [facility] Opiates Urine Positive(A) Negative : < 300 ng/mL 02/09/2021 11:37 PM [facility] Comment:Positive urine opiat e screening results should be confirmed by another generally accepted non-immunological method such as gas chromatography or mass spectrometry. Cocaine Metabolites Urine Negative Negative : < 300 ng/mL 02/09/2021 11:37 PM [facility] Phencyclidine Screen Urine Negative Negative : < 25 ng/ml 02/09/2021 11:37 PM [facility] Cannabinoids Screen Urine Positive(A) Negative : <50 ng/mL 02/09/2021 11:37 PM [facility] Comment:Positive urine canna binoids (THC) screening results should be confirmed by another generally accepted non-immunological method such as gas chromatography or mass spectrometry. Methadone Screen Urine Negative Negative : < 300 ng/mL 02/09/2021 11:37 PM [facility] Fentanyl Screen Urine Negative Negative : <1.0 ng/mL 02/09/2021 11:37 PM [facility] Urine URINE / Unknown Collection / Unknown 02/09/2021 11:16 PM CDT 02/09/2021 11:19 PM CDT [facility] - 02/09/2021 11:37 PM T The Urine Toxicology Screening Panel does not screen for Propoxyphene, Meprobamate, Carisoprodol, Trazodone, bigj-uis-aplntpt medications and/or volatiles (Acetone, Isopropanol, Methanol or Ethylene Glycol). Ethanol, Salicylate, Acetaminophen, Tricyclic Antidepressants and several therapeutic drugs may be individually assayed in serum or plasma specimen. Toxicology testing by the [facility] is an aid to medical diagnosis and treatment of patients. No documented chain of custody was maintained. Results are intended to be used for clinical purposes only. ? Jay Ledezma MD LAB - URINE ARVIND SHEMAR ORDERABLES Performing Organization Address [facility] Co de Phone Number [facility] [address] [place] [address], [place] [phone]
--- OUTSIDE RECORDS SUMMARY | 2024-08-04 17:06 | XMS_ITS | Referral Summary ---
Author Organization [facility] Address [address] [place] [address] Care Team Providers Care Electrical Maintenance Technician Name Role Phone Unavailable Primary Care Provider Unavailabl e Source Comments [facility],non-owned Affiliates and Associated Physician Practices is amultiple site organization consisting of ambulatory clinics and hospital sitesin [place], [place], [place] and [place]. This disclosure is being madepursuant to the Care Everywhere program and may not contain all information available regarding this patient. Last updated 18.[facility] [employer] Allergies No known active allergies Medications * Be aware that medications may not be up to date on this document. Alwaysverify current medications with the patient. Medication Sig Dispensed Refills Start Date End Date Status oxymetazoline (AFRIN) 0.05 % nasal spray [place] 1 (one) spray into each nostril 2 times daily 37 mL 02/10/2021 Active chlorhexidine (PERIDEX) 0.12 % solution Swish and spit 2 times daily 473 mL 02/10/2021 Active oxyCODONE-acetaminoph en (PERCOCET) 5-325 MG tablet Take 1 (one) tablet by mouth every 6 hours as needed for Pain 12 tablet 02/10/2021 Active Social History Tobacco Use Types Packs/Day [...] Mass Index 27.2 02/09/2021 9:48 PM CDT Plan of Treatment Not on file Jac Bolden Personal/Family Self 1990 [address] [place] [address]
--- OUTSIDE RECORDS SUMMARY | 2024-08-04 17:06 | XMS_ITS | Clinical Summary ---
Author Organization [facility] Address [address] [place] [address] Care Team Providers Care Butcher'S Assistant Name Role Phone Unavailable Primary Care Provider Unavailabl e Source Comments [facility],non-owned Affiliates and Associated Physician Practices is amultiple site organization consisting of ambulatory clinics and hospital sitesin [place], [place], [place] and [place]. This disclosure is being madepursuant to the Care Everywhere program and may not contain all information available regarding this patient. Last updated 18.[facility] Allergies No known active allergies Medications * Be aware that medications may not be up to date on this document. Alwaysverify current medications with the patient. Medication Sig Dispensed Refills Start Date End Date Status oxymetazoline (AFRIN) 0.05 % nasal spray [place] 1 (one) spray into each nostril 2 [...] 02/09/2021 9:48 PM CDT Plan of Treatment Health Maintenance Due Date Last Done Comments HIV SCREENING 2005 HEPATITIS C SCREENING 04/19/2008 DTAP/TDAP/TD VACCINES (1 - Tdap) 2009 HEPATITIS B VACCINE (1 of 3 - 19+ 3-dose series) 2009 COVID-19 VACCINE (1 - 2023-2 5 season) 2024 INFLUENZA VACCINE (#1) 2024 DEPRESSION SCREENING 07/09/2024 ZOSTER VACCINE (1 of 2) 2040 HIB VACCINE Aged Out No longer eligi ble based on patient's age to complete this topic HPV VACCINE Aged Out No longer eligi ble based on patient's age to complete this topic MENINGOCOCCAL (Group B) VACCINE Aged Out No longer eligible based on patient's age to complete this topic MENINGOCOCCAL VACCINE Aged Out No ramon александр eligible based on patient's age to complete this topic PNEUMOCOCCAL VACCINE Aged Out No long er eligible based on patient's age to complete this topic
--- OUTSIDE RECORDS SUMMARY | 2024-08-04 17:06 | XMS_ITS | Encounter Summary ---
Author Organization [facility] Address [address] [facility] [place] [address] Care Team Providers Care Airport Planner Name Role Phone Unavailable Primary Care Provider Unavailabl e Encounter Details Date Type Department Care Team (Late st Contact Info) Description 02/09/2021 Ophth Exam [facility] [address] [place] [address] Phillip Campos MD [address] [address] Social History Tobacco Use Types Packs/Day Years Used Date Smoking Tobacco: Never Assessed Sex and Gender Information Value Date Recorded Sex Assigned at Not on file Gender Identity Not on file Sexual Orientation Not on file documented as of this encounter Plan of Treatment Not on file documented as of this encounter Visit Diagnoses Not on filedocumented in this encounter
--- OUTSIDE RECORDS SUMMARY | 2024-08-04 17:06 | XMS_ITS | Encounter Summary ---
Author Organization [facility] Address [address] [facility] [place] [address] Care Team Providers Care Local Intermodal Truck Driver Name Role Phone Unavailable Primary Care Provider Unavailabl e Encounter Details Date Type Department Care Team (Late st Contact Info) Description 02/10/2021 Telephone [facility] [address] [place] [address], [place] [address] Austen Lowery MD [address] [place] [address] OF [place]IC [place] [address] Social History Tobacco Use Types Packs/Day Years Used Date Smoking Tobacco: Never Assessed Sex and Gender Information Value Date Recorded Sex Assigned at Not on file Gender Identity Not on file Sexual Orientation Not on file documented as of this encounter Miscellaneous Notes * Telephone Encounter - Bear Lima - 02/10/2021 1:34 PM CDT The patient was not able to be reached via all listed contact numbers. Due to [facility] not participating with his insurance. Patient will need to contact his insurance andfind a provider that is contracted with their insurance. Unable to schedule office follow-up for this patient at this time. documented in this encounter Plan of Treatment Not on file documented as of this encounter Visit Diagnoses Not on filedocumented in this encounter
[2024-08-04 17:28] VITALS: BP 121/71; PULSE 91; RESP 20; TEMP 37.5; O2SAT 100
--- NOTE | 2024-08-04 19:22 | ED.URI ---
HPI - URI/Sore Throat General Chief Complaint: Upper Respiratory Infection Stated Complaint: Headache/Sore Throat/Cough Time Seen by Provider: 08/04/24 19:10 Source: patient and RN notes reviewed Mode of arrival: ambulatory Limitations: no limitations History of Present Illness HPI Narrative: 34 year old male presents to [facility] care with complaints of headache and sore throat and cough which just started last night.Patient reports that his head hurts so bad he states it is a 10/10 throbbing and has taken some Tylenol for his headache with no improvement. Patient reports that his mother and grandmother are ill with similar symptoms and were diagnosed with flu and RSV. Patient reports that he has had some fevers, chills and body aches. Patine denies any changes in his vision or any nausea vomiting or diarrhea,denies any dizziness. MD elicited complaint: fever, cough, sore throat and other (headache) Onset (ago): day(s) (since last night) Consistency: constant Pain scale (0-10): 10 Able to tolerate fluids by mouth: Yes Treatments prior to arrival: acetaminophen Related Data Allergies Allergy/AdvReac Type Severity Reaction Status Date / Time No Known Allergies Allergy Verified 08/04/24 17:35 Review of Systems Review of Systems: CONSTITUTIONAL: Reports malaise, chills, sweats, or fever. EYES: Denies visual changes, redness, or discharge. ENT: Reports rhinorrhea, congestion,no sinus pain,no otalgia and positive for sore throat. CARDIOVASCULAR: Denies chest pain, palpitations, or edema. RESPIRATORY: Reports cough.? Denies dyspnea. GASTROINTESTINAL: Denies abdominal pain, nausea, vomiting, diarrhea SKIN: Denies rash or itching. MUSCULOSKELETAL:Reports myalgia. NEUROLOGIC: Reports headache, denies any dizziness All systems reviewed & are unremarkable except as noted in HPI and below PMFSH Surgical History Surgical History History of hernia surgery Social History Social History Smoking status: Never smoker Alcohol intake: unknown Substance use: unknown Living arrangements: with family Gender identity (if verbalized by the patient): Male Comments At time of signature, agree with nursing past medical, surgical, social and family history. There is no relevant family history pertinent to the presenting complaint Exam Narrative: GENERAL: Well-appearing, well-nourished, and in no acute distress. HEAD: Normocephalic EYES: PERRLA, conjunctivae clear, no nystagmus, no photophobia ENT: Nares clear, turbinates edematous and erythematous, clear discharge. Mucous membranes moist. TM pearly silva with dull light reflex bilaterally; no tragal tenderness. Oropharynx erythematous without lesions. Tonsils not enlarged and without exudate, no drooling, no hoarseness, no trismus, uvula midline.post nasal drainage NECK: Supple. No lymphadenopathy CHEST: Clear to auscultation, breath sounds equal. No wheezing, rhonchi, rales, or stridor. No respiratory distress, speaks in full sentences. cough dry SAO2 100% on room air no tachypnea or any retractions HEART: Regular rate and rhythm. No murmur heard. SKIN: Warm, dry, no rash. NEURO: Alert and oriented x3. throbbing headache reported, gait steady, no nuchal rigidity PSYCH: Normal mood and affect Course Course Emergency Course: Patient is aware of diagnosis, understands and agrees to treatment plan.? Anticipatory guidance given.? Patient agrees to follow-up as directed and is aware of reasons to seek care at the emergency department. Portions of this record may have been created with voice recognition software Level of Care: Express Care Visit Vital Signs Vital signs: Vital Signs Temperature 37.5 C 08/04/24 17:28 Pulse Rate 91 08/04/24 17:28 Respiratory Rate 20 08/04/24 17:28 Blood Pressure 121/71 08/04/24 17:28 Pulse Oximetry 100 08/04/24 17:28 Oxygen Delivery Room Air 08/04/24 17:28 Temperature 37.5 C 08/04/24 17:28 Pulse Rate 91 08/04/24 17:28 Respiratory Rate 20 08/04/24 17:28 Blood Pressure 121/71 08/04/24 17:28 Pulse Oximetry 100 08/04/24 17:28 Oxygen Delivery Room Air 08/04/24 17:28 Reviewed MDM - URI/Sore Throat MDM Narrative Medical decision making narrative: Differential diagnosis considered: Chambers virus, strep pharyngitis, allergic rhinitis, upper respiratory tract infection, sinusitis, rhinosinusitis, nasopharyngitis. viral pharyngitis, otitis media, otitis externa, pneumonia, bronchitis, viral cough syndrome, viral syndrome, and influenza.? Exam findings show no acute concerns or changes; patient is non-toxic appearing and is in no distress.? Patient is appropriate for outpatient treatment and follow-up. Patient medicated with Ibuprofen 600 mg at 1937 for headache pain with stated some little improvement in pain. Differential Diagnosis Differential diagnosis: Likely upper respiratory infection, viral infection, influenza, pharyngitis and other (strep pharyngitis. headache, acute cough) Medical Records Attestation: I reviewed the patient's medical records. Lab Data Attestation: I reviewed the patient's lab results. Lab results narrative: strep screen negative culture sent, Influenza A negative, Influenza B negative, COVID antigen negative Labs: Lab Results 08/04/24 08/04/24 Range/Units 17:36 19:28 POC Influenza A Ag Negative (Negative) POC Influenza B Ag Negative (Negative) POC SARS CoV-2 Ag Negative (Negative) POC Grp A Strep Screen Positive (Negative) Critical Care Time Critical Care Time Critical Care Time: No Discharge Plan Discharge Clinical Impression: URI with cough and congestion Headache Qualifiers: Headache type: unspecified Headache chronicity pattern: acute headache Intractability: not intractable Qualified Code(s): R51.9 - Headache, unspecified Patient Disposition: Home, Self-Care Condition: Stable Instructions: Antibiotic Form, Acute Headache (ED), Acute Cough (ED) Additional Instructions: Increase fluids especially juices and water [id number] cough and cold medicine of your choice for your symptoms such as Delsym or Robitussin Cough tablets as directed for cough--do not bite, chew or suck on--swallow whole Continue your inhaler/nebulizer as directed Steroids as directed--take with food heat to the face 20-30 minutes 4-6 times a day for pain Salt water gargles, throat lozenges or throat sprays as desired If your symptoms persist, change or worsen significantly before you can contact your personal physician then please, without delay, go to the emergency department for further evaluation. Follow-up with PCP in 7-10 days or sooner if needed Strep COVID and influenza negative Alternate Tylenol and ibuprofen for pain or fever Patient Language: Thai Prescriptions: New prednisone 20 mg tablet 20 mg PO BID Qty: 10 0RF Rx Instructions: Take with food start in a.m. benzonatate 200 mg capsule 200 mg PO TID PRN (Reason: cough) Qty: 14 0RF Follow-up/Referrals: Quinten,Parag Lucero MD [Primary Care Provider] - Stand Alone Forms: Work/School Release IP Time of Disposition: 19:53 Quality Alfonzo Coma Scale Eyes: Open Verbal: Oriented and Alert Motor: Follows Commands [place] Coma Total Score: 15
[2024-08-04 19:30] LABS: EDCOVIDSCREEN Negative (Negative); EDINFLUASCREEN Negative (Negative); EDINFLUBSCREEN Negative (Negative)
[2024-08-04 19:30] LABS: EDSTREPNEGPOS1 Positive (Negative)
[2024-08-04] MEDS: IBUPROFEN 600 MG TABLET PO (19:41)
== END 2024-08-04 20:04 | disposition home or self-care (01) ==
PROVIDERS: Emergency Provider Registered Nurse; PCP Family Medicine
DX: J06.9 Acute upper respiratory infection, unspecified (principal); R05.9 Cough, unspecified; R51.9 Headache, unspecified; Z20.822 Contact with and (suspected) exposure to COVID-19
CPT/HCPCS: 87081; 87426; 87804; 87880; 99213; A9270; G0463

== ENCOUNTER 2024-10-24 15:58 | Emergency (ER) | payer BC, SELFPAY ==
--- OUTSIDE RECORDS SUMMARY | 2024-10-24 16:00 | XMS_ITS | Encounter Summary ---
Author Organization [facility] Health Address [address] [place] [address] Care Team Providers Care Oracle Bpm Consultant Name Role Phone Unavailable Primary Care Provider Unavailabl e Encounter Details Date Type Department Care Team (Late st Contact Info) Description 02/10/2021 Telephone [facility], [place] [address] Austen Lowery MD [address] [place] [address] [place] [address] Social History Tobacco Use Types Packs/Day Years Used Date Smoking Tobacco: Never Assessed Sex and Gender Information Value Date Recorded Sex Assigned at Not on file Legal Sex Male 9:39 PM CDT Gender Identity Not on file [...]
--- OUTSIDE RECORDS SUMMARY | 2024-10-24 16:00 | XMS_ITS | Data Portability ---
Author Organization [facility] [place] [place] Gonzalez Address [address] [place] [address] Care Team Providers Care Prison Guard Supervisor Name Role Phone ZEE PANDYA Primary Care Provider Unavailabl e Assessment Encounter Date Assessment Date Assessment LastModified by Organization Details LastModified Time 02/18/2024 02/18/2024 I personally saw and examined pt w/resident. Documentation was reviewed, and I agree w/resident's note. Dr. Shipley Not available 02/20/2024 06:56:03 Plan of Treatment Reminders Order Date Submit Date Provider Last Modified By Organization Details Last Modified Time Details Appointments None recorded. Lab CBC w/ auto diff 2023 024 [facility], [address] [place] [address], [address], 4 08:24:50 BMP, serum or plasma 2023 024 [facility], [address] [place] [address], [address], 4 08:24:49 lipid panel, serum 2023 024 [facility], [address] [place] [address] 2, [place], [address], 4 08:24:48 Hepatitis C IgG Ab, qual, serum 2023 024 [facility], [address] [place] [address], [place], [address], 4 08:24:44 HIV 1 + 2, meaningful use set 2023 024 [facility], [address] [facility], [facility] [address], [place], [address], 4 08:24:45 Referral None recorded. Procedures None recorded. Surgeries None recorded. Imaging None recorded. Medication Orders omeprazole 40 mg capsule,de layed release 2024 025 [id number], [address], [place], [place], [id number], 5 09:40:06 hydroxyzin e HCl 25 mg tablet 2023 024 [id number], [address], [place], [place], [id number], 5 09:01:43 sildenafil 25 mg tablet 2023 024 [facility], [address], [place], [place], [id number], 5 09:01:54 Patient TargetsNo targets recorded. Patient Instructions Encounter Date Encounter Id Patient Instructions Last Modified By Organization Details Last Modified Time 02/18/2024 [id number] When You Want to Lose Weight: Care Instructions [email or web address] Not available 02/18/2024 16:06:13 HIV testing: car e instructions [email or web address] Not available 02/18/2024 16:06:13 07/29/2024 [id number] abdominal pain: care instructions [email or web address] Not available 07/29/2024 09:40:02 gastroesophageal reflux disease (GERD): care instructions [email or web address] Not available 07/29/2024 09:40:02 I saw the patien t with the resident. I agree with the resident's assessment and plan as documented with the following additions: Abd Pain for 3 weeks DDx - Lactose Intolerance vs IBS vs IBD vs - Food diary - Short course of PPI MD [email or web address] Not available 07/29/2024 09:33:35 Reason for Referral None Reported. Results Created [...] ate HCV infec tion. Not Available [facility] ([facility]) [address] [place], [address], 03/04/2024 08:24:43 03/03/2003/04/2024 HCV ANTIB RATNA RFX TO QUANT PCR HCV Ab NON REACTI VE nonrea ctive Not Available [facility] ([facility]) [address] [place], [address], 03/04/2024 08:24:44 03/03/20 24 03/04/2024 HIV AB/P2 4 AG WITH REFLE X HIV Ab/P24 Ag screen NON REACTI VE nonrea ctive HIV-1 /HIV- 2 antib odies and HIV-1 p24 antig en were NOT detec gena. There is no labor atory evide nce of HIV infec tion. HIV Negat ron Not Available [facility] ([facility]) [address] [place], [address], 03/04/2024 08:24:45 03/03/2003/04/2024 LIPID PANEL cholesterol, total 236 mg/dL 100-19 9 above high normal Not Available [facility] ([facility]) [address] [place], [address], 03/04/2024 08:24:48 03/03/20 24 03/04/2024 LIPID PANEL triglyceride s 495 mg/dL 0-149 above high normal Not Available [facility] ([facility]) [address] [place], [address], 03/04/2024 08:24:48 03/03/20 24 03/04/2024 LIPID PANEL HDL cholesterol 29 mg/dL >39 below low normal Not Available [facility] ([facility]) [address] [place], [address], 03/04/2024 08:24:48 03/03/20 24 03/04/2024 LIPID PANEL VLDL cholesterol gaetano 88 mg/dL 5-40 above high normal Not Available [facility] ([facility]) [address] [place], [address], 03/04/2024 08:24:48 03/03/20 24 03/04/2024 LIPID PANEL LDL chol calc ([facility]) 119 mg/dL 0-99 above high normal Not Available [facility] ([facility]) [address] [place], [address], 03/04/2024 08:24:48 03/03/20 24 03/04/2024 BASIC METAB OLIC PANEL (8) glucose 94 mg/dL 70-99 Not Available [facility] ([facility]) [address] [place], [address], 03/04/2024 08:24:49 03/03/20 24 03/04/2024 BASIC METAB OLIC PANEL (8) BUN 12 mg/dL 6-20 Not Available [facility] ([facility]) [address] [place], [address], 03/04/2024 08:24:49 03/03/20 24 03/04/2024 BASIC METAB OLIC PANEL (8) creatinine 1.05 mg/dL 0.76-1 .27 Not Available [facility] ([facility]) [address] [place], [address], 03/04/2024 08:24:49 03/03/20 24 03/04/2024 BASIC METAB OLIC PANEL (8) eGFR 96 mL/mi n/1.7 3 >59 Not Available [facility] ([facility]) [address] [facility] [place], [address], 03/04/2024 08:24:49 03/03/20 24 03/04/2024 BASIC METAB OLIC PANEL (8) BUN/creatini ne ratio 11 9-20 Not Available [facility] ([facility]) [address] [facility] [place], [address], 03/04/2024 08:24:49 03/03/20 24 03/04/2024 BASIC METAB OLIC PANEL (8) sodium 138 mmol/ L 134-14 4 Not Available [facility] ([facility]) [address] [facility] [place], [address], 03/04/2024 08:24:49 03/03/20 24 03/04/2024 BASIC METAB OLIC PANEL (8) potassium 4.3 mmol/ L 3.5-5. 2 Not Available [facility] ([facility]) [address] [facility] [place], [address], 03/04/2024 08:24:49 03/03/20 24 03/04/2024 BASIC METAB OLIC PANEL (8) chloride 99 mmol/ L 96-106 Not Available [facility] ([facility]) [address] [place], [address], 03/04/2024 08:24:49 03/03/20 24 03/04/2024 BASIC METAB OLIC PANEL (8) carbon dioxide, total 24 mmol/ L 20-29 Not Available [facility] ([facility]) [address] [facility] [place], [address], 03/04/2024 08:24:49 03/03/20 24 03/04/2024 BASIC METAB OLIC PANEL (8) calcium 9.7 mg/dL 8.7-10 .2 Not Available [facility] ([facility]) [address] [place] [place], [address], 03/04/2024 08:24:49 03/03/2003/04/2024 CBC WITH DIFFE RENTI AL/PL ATELE T WBC 6.5 x10e3 /uL 3.4-10 .8 Not Available [facility] ([facility]) [address] [facility], [place], [address], 03/04/2024 08:24:50 03/03/2003/04/2024 CBC WITH DIFFE RENTI AL/PL ATELE T RBC 5.72 x10e6 /uL 4.14-5 .80 Not Available [facility] ([facility]) [address] [place], [address], 03/04/2024 08:24:50 03/03/2003/04/2024 CBC WITH DIFFE RENTI AL/PL ATELE T hemoglobin 17.0 g/dL 13.0-1 7.7 Not Available [facility] ([facility]) [address] [place], [address], 03/04/2024 08:24:50 03/03/2003/04/2024 CBC WITH DIFFE RENTI AL/PL ATELE T hematocrit 51.7 % 37.5-5 1.0 above high normal Not Available [facility] ([facility]) [address] [place], [address], 03/04/2024 08:24:50 03/03/2003/04/2024 CBC WITH DIFFE RENTI AL/PL ATELE T MCV 90 fL 79-97 Not Available [facility] ([facility]) [address] [place], [address], 03/04/2024 08:24:50 03/03/2003/04/2024 CBC WITH DIFFE RENTI AL/PL ATELE T MCH 29.7 pg 26.6-3 3.0 Not Available [facility] ([facility]) [address] [place], [address], 03/04/2024 08:24:50 03/03/2003/04/2024 CBC WITH DIFFE RENTI AL/PL ATELE T MCHC 32.9 g/dL 31.5-3 5.7 Not Available [facility] ([facility]) [address] [facility], [place], [address], 03/04/2024 08:24:50 03/03/2003/04/2024 CBC WITH DIFFE RENTI AL/PL ATELE T RDW 13.1 % 11.6-1 5.4 Not Available [facility] ([facility]) [address] [facility], [place], [address], 03/04/2024 08:24:50 03/03/20 24 03/04/2024 CBC WITH DIFFE RENTI AL/PL ATELE T platelets 224 x10e3 /uL 150-45 0 Not Available [facility] ([facility]) [address] [facility], [place], [address], 03/04/2024 08:24:50 03/03/2003/04/2024 CBC WITH DIFFE RENTI AL/PL ATELE T neutrophils 63 % notest ab. Not Available [facility] ([facility]) [address] [facility], [place], [address], 03/04/2024 08:24:50 03/03/2003/04/2024 CBC WITH DIFFE RENTI AL/PL ATELE T lymphs 28 % notest ab. Not Available [facility] ([facility]) [address] [facility], [place], [address], 03/04/2024 08:24:50 03/03/20 24 03/04/2024 CBC WITH DIFFE RENTI AL/PL ATELE T monocytes 6 % notest ab. Not Available [facility] ([facility]) [address] [place], [address], 03/04/2024 08:24:50 03/03/20 24 03/04/2024 CBC WITH DIFFE RENTI AL/PL ATELE T eos 2 % notest ab. Not Available [facility] ([facility]) [address] [facility], [place], [address], 03/04/2024 08:24:50 03/03/20 24 03/04/2024 CBC WITH DIFFE RENTI AL/PL ATELE T basos 1 % notest ab. Not Available [facility] ([facility]) [address] [facility], [place], [address], 03/04/2024 08:24:50 03/03/2003/04/2024 CBC WITH DIFFE RENTI AL/PL ATELE T neutrophils (absolute) 4.1 x10e3 /uL 1.4-7. 0 Not Available [facility] ([facility]) [address] [facility], [place], [address], 03/04/2024 08:24:50 03/03/20 24 03/04/2024 CBC WITH DIFFE RENTI AL/PL ATELE T lymphs (absolute) 1.8 x10e3 /uL 0.7-3. 1 Not Available [facility] ([facility]) [address] [place], [address], 03/04/2024 08:24:50 03/03/20 24 03/04/2024 CBC WITH DIFFE RENTI AL/PL ATELE T monocytes(ab solute) 0.4 x10e3 /uL 0.1-0. 9 Not Available [facility] ([facility]) [address] [place], [address], 03/04/2024 08:24:50 03/03/20 24 03/04/2024 CBC WITH DIFFE RENTI AL/PL ATELE T eos (absolute) 0.1 x10e3 /uL 0.0-0. 4 Not Available [facility] ([facility]) [address] [place], [address], 03/04/2024 08:24:50 03/03/20 24 03/04/2024 CBC WITH DIFFE RENTI AL/PL ATELE T baso (absolute) 0.0 x10e3 /uL 0.0-0. 2 Not Available [facility] ([facility]) [address] [facility], [place], [address], 03/04/2024 08:24:50 03/03/20 24 03/04/2024 CBC WITH DIFFE RENTI AL/PL ATELE T immature granulocytes 0 % notest ab. Not Available [facility] ([facility]) [address] [facility], [place], [address], 03/04/2024 08:24:50 03/03/20 24 03/04/2024 CBC WITH DIFFE RENTI AL/PL ATELE T immature grans (abs) 0.0 x10e3 /uL 0.0-0. 1 Not Available [facility] ([facility]) [address] [place], [address], 03/04/2024 08:24:50 Result Notes None recorded. Problems Name Problem SNOMED Code Status Onset Date Resolution Date Notes Provider Name and Address Organization Details Recorded Time Asthma 777692266 Active 025 Josefina Cornell MD Attn: Accounting, [address] [place], [address], [facility] 07/29/2024 09:28:49 Problem Notes None recorded. Medical Equipment None Reported. Allergies No known drug allergies Medications Name Sig Start Date Stop Date Status Note LastModified by Organization Details LastModified Time prednisone 20 mg tablet TAKE 1 TABLET BY MOUTH TWICE DAILY WITH FOOD. START IN AM active Not Available Not Available No t Available omeprazole 40 mg capsule,de layed release TAKE 1 CAPSULE BY MOUTH EVERY DAY active Not Available Not Available No t Available sildenafil 25 mg tablet Take 1 tablet [...] Not Available Vitals Date Recorded Body height Body mass index (BMI) Body weight Respiratory rate Body temperature Heart rate Oxygen saturation Oxygen saturation in Arterial blood by Pulse oximetry Systolic blood pressure Diastolic blood pressure Provider Name and Address Organization Details Last Updated DateTime 4 180.34 cm 33.8 kg/m2 779629. 71 g 20 /min 98.4 [degF] 65 /min 95 % 95 % 119 mm[Hg] 76 mm[Hg] SARA Babcock [facility] 4 15:03:54 Date Recorded Body height Body mass index (BMI) Body weight Body temperature Heart rate Respiratory rate Oxygen saturation Oxygen saturation in Arterial blood by Pulse oximetry Systolic blood pressure Diastolic blood pressure Provider Name and Address Organization Details Last Updated DateTime 5 180.34 cm 34.2 kg/m2 468150. 53 g 97.1 [degF] 66 /min 18 /min 97 % 97 % 126 mm[Hg] 81 mm[Hg] Hossein Sandra MA [facility] 5 09:04:05 Social History Question Answer Notes LastModified by Organizat ion Details LastModified Time Tobacco Smoking Status Current Every Day Smoker SARA Babcock [facility], [facility] 02/18/2024 14:59:19 What Is Your Level Of [...] Skin Problems N Anemia N Heart Attack ([place]) N Anxiety Disorder N Diabetes N Muscle, Joint, or Bone Problems N Seizures/Epilepsy N Have you had a colonoscopy in the last 1 0 years? N Acid Reflux (GERD) N Cancer N Stroke N Asthma N Allergies N Have you had a PSA blood test in the las t year? N High Cholesterol N Hepatitis N Liver Disease N Headaches N Osteoporosis N Heart Failure N Past Encounters Encounter ID Performer Location Encounter Start Date Encounter Closed Date Diagnosis/Indication Diagnosis SNOMED-CT Code Diagnosis ICD10 Code Diagnosis Note [id number] MD Zo Cox 14 IM [address] [facility] [place] [address] 02/18/2024 14:39:11 02/20/2024 10:24:56 Adult health examination 840021170 Z00.00 Pt re-establi cassidy w/ a primary doctorPt to schedule follow up as needed HIV screening 041189755 Z11.4 No documentat ion of prior HIV screeningP [place]: One time HIV screen Hepatitis C screening 41 5833381 Z11.59 No documentat ion of prior HCV screeningP [place]: One time HCV screen Obesity 872073700 E66.9 BMI of 33.8, pt has not seen doctor regularly for a few yearsPlan: Establish baseline labs including CBC, BMP, and lipid panel Pruritic rash 42691283 L 28.2 Likely hypersensi tivity rashPlan: hydroxyzin e 25 mg PO TID PRN, if rash persists or worsens, pt can return to office Erectile dysfunction 860 965413 F52.21 Began in group home, likely psychologi gaetano in nature. Occasional morning erections suggests intact functional ityPlan: Trial of sildenafil 25 mg [id number] MD Zo Sheikh 14 IM [address] [facility] [place] [address] 07/29/2024 08:53:17 08/15/2024 08:43:59 Abdominal pain 07464904 R10.11 34 y/o M w/ 3 weeks of RLQ abdominal pain. Lactose intoleranc e vs IBS given worsening of symptoms with dairy products. GERD may be a contributi ng factor in abdominal pain. Peptic ulcer disease would be unusual with RLQ pain. Intermitte nt pain that worsens with eating would not be consistent with appendicit is.Plan: Recommende d keeping food diary to track symptoms and triggers. Recommende d abstaining from dairy products and spicy foods. Gastroesop hageal reflux disease 409063653 K21.9 Pt with occasional heartburn with eating. Previously managed with pepcid, which improved symptoms. Likely, GERD and/or peptic ulcer disease.Pl an: Start omeprazole 40 mg daily Health Concerns Section Related Observation LastModified by Organization Detai ls LastModified Time None Recorded Concern Status LastModified by Organization Details LastModified Time None Recorded Advance Directives Directive None Recorded Payers Encounter Date Sequence Insurance Name Policy Number Policy Dale Covered Member ID Dale Member ID Guarantor Name 02/18/2024 1 [place] [facility] DEPARTMENT OF PUBLIC AID Jac Bolden [id number] Jac Bolden 07/29/2024 1 [facility] (MEDICAID REPLACEMENT - HMO) [id number] Jac Bolden [id number] Jac Bolden Notes Date Note Type Note [...] would be in the 180s/90s. While in group home, he was started on propranolol, which helped both of these issues. Pt denies headaches today. Pt complains of ED that began while in group home. He is able to have morning erections some of the time and he is still able to ejaculate. Pt denies dysuria, hematuria, abdominal pain, anxiety, or depression. Pt also has a new rash since leaving group home on arms, chest, and neck. The rash is itchy but not painful. There is no bleeding or discharge. Pt attributes the rash to new soaps since leaving group home about 1 month ago. Pt denies fever, chills, headaches, dizziness, SOB, chest pain, or palpitations. 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 He noticed this pain start when he ate spicy foods, milk, and dairy products. His pain would resolve after not eating for a while. The pain is non-radiating but is cramping and bloating in nature. He also describes an intermittent warmth sensation in the RLQ. He is having diarrhea about every other day. Sometimes he will see a little bit of bright, red blood with wiping but not seen in his stools. He denies black tarry stools. He also has heartburn. He used to take pepcid, which improved the heartburn. He visited the ED on 07/17. UA was unremarkable and CT abd was unremarkable. He denies fever, chills, headache, dizziness, chest pain, palpitations, SOB, coughing, wheezing, N/V, or dysuria. 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
--- OUTSIDE RECORDS SUMMARY | 2024-10-24 16:00 | XMS_ITS | Encounter Summary ---
Author Organization [facility] Address [address] [place] [address] Care Team Providers Care Smooth And Burr Worker Composites Name Role Phone Unavailable Primary Care Provider Unavailabl e Encounter Details Date Type Department Care Team (Late st Contact Info) Description 02/09/2021 Ophth Exam [facility] [address] [place] [address] Phillip Campos MD [address] [address] Social History Tobacco Use Types [...]
--- OUTSIDE RECORDS SUMMARY | 2024-10-24 16:00 | XMS_ITS | Clinical Summary ---
Author Organization [facility] Address [address] [place] [address] Phone Care Team Providers Care Asbestos Removal Worker Name Role Phone Provider, None Primary Care [...] 67 02/09/2021 8:39 PM CDT Temperature 36.8 C (98.2 F) 02/09/2021 2:52 PM CDT Respiratory Rate 14 02/09/2021 8:39 PM CDT [...] patient's age to complete this topic Insurance [place] S[place] MENDEZ [id number] Care Teams Asbestos Removal Worker Relationship Specialty Start Date End Date Provider, None [place] PCP - General 07/28/15
--- OUTSIDE RECORDS SUMMARY | 2024-10-24 16:01 | XMS_ITS | Clinical Summary ---
Author Organization [facility] Address [address] [place] [address] Care Team Providers Care Advanced Practice Provider Name Role Phone Unavailable Primary Care Provider Unavailabl e Source Comments [facility],non-owned Affiliates and Associated Physician Practices is amultiple site organization consisting of ambulatory clinics and hospital sitesin [place], [place], [place] and [place]. This disclosure is being madepursuant to the Care Everywhere program and may not contain all information available regarding this patient. Last updated 18.[facility] Allergies No known active allergies Medications * Be aware that medications may not be up to date on this document. Alwaysverify current medications with the patient. oxymetazoline (AFRIN) 0.05 % nasal spray Palo 1 (one) spray into each nostril 2 times daily 37 mL 02/10/2021 Active chlorhexidine (PERIDEX) 0.12 % solution Swish and spit 2 times daily 473 mL 02/10/2021 Active oxyCODONE-aceta minophen (PERCOCET) 5-325 MG tablet Take 1 (one) [...] 60 02/10/2021 5:00 AM CDT Temperature 36.9 C (98.4 F) 02/10/2021 5:00 AM CDT Respiratory Rate 14 02/10/2021 5:00 AM CDT [...] VACCINE (1 - 2023-2 5 season) 2024 DEPRESSION SCREENING 07/09/2024 INFLUENZA VACCINE (Season Ended) 2025 ZOSTER VACCINE (1 of 2) 2040 HIB VACCINE Aged Out No longer eligi ble based on patient's age to complete this topic HPV VACCINE Aged Out No longer eligi ble based on patient's age to complete this topic MENINGOCOCCAL (Group B) VACC INE SHARED DECISION-MAKING Aged Out No longer eligibl e based on patient's age to complete this topic MENINGOCOCCAL GROUPS A/C/Y/W VACCINE Aged Out No longer eligible b ased on patient's age to complete this topic PNEUMOCOCCAL VACCINE Aged Out No long er eligible based on patient's age to complete this topic Insurance MEDICAID [id number]
[2024-10-24 16:07] VITALS: BP 114/66; PULSE 71; RESP 16; TEMP 36.9; O2SAT 98
--- NOTE | 2024-10-24 16:13 | ED_ITS ---
HPI - Dental/Oral General Chief complaint: Dental/Oral Stated complaint: tooth Pain Time Seen by Provider: 10/24/24 16:13 Source: patient, RN notes reviewed and old records reviewed Mode of arrival: ambulatory Limitations: no limitations History of Present Illness HPI Narrative: 34 year old male presents to [facility] care with complaints of dental pain to the right lower molar #28 with increased pain since las night. Patient reports that he is scheduled to get all of his teeth removed in November since he has poor dentition, does have partial plate that he wears on top. 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 Patient reports that he has ruined his teeth. Patient reports that he has been taking Tylenol and Ibuprofen for his pain. Patient reports no known fevers. MD Complaint: tooth pain Location: Tooth # (28) Onset (ago): day(s) (increased pain since last night) Severity scale (1-10): 10 Treatment prior to arrival: oral analgesic (Tylenol and Ibuprofen) Related Data Home Medications ?Medication ?Instructions ?Recorded ?Confirmed ?Last Taken ?Type omeprazole 40 mg capsule,delayed mg 10/24/24 Unknown History release Allergies Allergy/AdvReac Type Severity Reaction Status Date / Time No Known Allergies Allergy Verified 10/24/24 16:07 Review of Systems Review of Systems: CONSTITUTIONAL: Denies fever, chills, or sweats. ENT: Denies rhinorrhea, congestion, sore throat, or otalgia. Reports dental pain to right lower molar with noted decay CARDIOVASCULAR: Denies chest pain, palpitations, or edema. RESPIRATORY: Denies cough or dyspnea. SKIN: Denies rash or itching. MUSCULOSKELETAL: Denies myalgia. NEUROLOGIC: Denies headache All systems reviewed & are unremarkable except as noted in HPI and below PMFSH Past Medical History Medical History History of dental problems GERD (gastroesophageal reflux disease) Surgical History Surgical History History of hernia surgery Social History Social History Smoking packs per day: 0.5 Smoking cigarettes per day: 10.0 Smoking status: Current every day smoker Tobacco type: cigarettes Alcohol intake: former Substance use: former Substance use type: crack/cocaine and methamphetamine Last use: has been clean for 4 years Living arrangements: with family Gender identity (if verbalized by the patient): Male Comments At time of signature, agree with nursing past medical, surgical, social and family history. There is no relevant family history pertinent to the presenting complaint Exam Narrative: GENERAL: Well-appearing, well-nourished, and in no acute distress. HEAD: Normocephalic, atraumatic. EYES: PERRLA and EOMI. ENT: Nares clear, no rhinorrhea or epistaxis. Mucous membranes moist. Missing teeth, broken teeth, caries with pain to #28 tooth with obvious decay no trismus, no facial swelling or any Jordon angina noted NECK: Supple.no lymphadenopathy CHEST: Clear to auscultation. No respiratory distress. SAO2 98% on room air HEART: Regular rate and rhythm. No murmur heard. Normal peripheral pulses. SKIN: Warm, dry, no rash. NEURO: No focal deficits. Alert and oriented x3. Course Course Emergency Course: Patient is aware of diagnosis, understands and agrees to treatment plan. Anticipatory guidance given. Patient agrees to follow-up as directed and is aware of reasons to seek care at the emergency department. Portions of this record may have been created with voice recognition software Level of Care: Express Care Visit Vital Signs Vital signs: Vital Signs Temperature 36.9 C 10/24/24 16:07 Pulse Rate 71 10/24/24 16:07 Respiratory Rate 16 10/24/24 16:07 Blood Pressure 114/66 10/24/24 16:07 Pulse Oximetry 98 10/24/24 16:07 Oxygen Delivery Room Air 10/24/24 16:07 Temperature 36.9 C 10/24/24 16:07 Pulse Rate 71 10/24/24 16:07 Respiratory Rate 16 10/24/24 16:07 Blood Pressure 114/66 10/24/24 16:07 Pulse Oximetry 98 10/24/24 16:07 Oxygen Delivery Room Air 10/24/24 16:07 Reviewed MDM - Dental/Oral MDM Narrative Medical decision making narrative: Patients pain and complaint coupled with physical findings are consistent with dentalgia. There are no focal signs of space occupying lesions that are compromising to the airway; no dysphagia, odynophagia, dysphonia, or dyspnea. No uvular deviation or soft palate edema. Patient is non-toxic appearing. The floor of the mouth is soft with no signs of Jordon's Angina; no induration below mandible, no neck pain.? Patient is without trismus or drooling and able to swallow secretions.? Patient is felt appropriate for discharge home with dental follow up. Differential Diagnosis Differential diagnosis: Likely dental caries, toothache and other (dental problems) Medical Records Attestation: I reviewed the patient's medical records. Critical Care Time Critical Care Time Critical Care Time: No Discharge Plan Discharge Clinical Impression: Dental caries, Toothache Patient Disposition: Home Condition: Stable Instructions: Antibiotic Form, Toothache (ED) Additional Instructions: Avoid temperature extremes May apply heat or ice to the face Gentle brushing and flossing Antibiotic as directed Tylenol for lesser pain Use ibuprofen regularly Follow-up with the dentist as soon as possible--see the list provided If your symptoms persist, change or worsen significantly before you can contact your personal physician then please, without delay, go to the emergency department for further evaluation. Follow-up with PCP in 7-10 days or sooner if needed Patient Language: Brazilian Prescriptions: New penicillin V potassium 500 mg tablet 500 mg PO Q12H 10 Days Qty: 20 0RF chlorhexidine gluconate [Peridex] 0.12 % mouthwash 15 ml mucous membrane BID Qty: 473 0RF No Action omeprazole 40 mg capsule,delayed release(DR/EC) prednisone 20 mg tablet 20 mg PO BID Qty: 10 0RF Rx Instructions: Take with food start in a.m. benzonatate 200 mg capsule 200 mg PO TID PRN (Reason: cough) Qty: 14 0RF Follow-up/Referrals: Quinten,Parag Lucero MD [Primary Care Provider] - Stand Alone Forms: Work/School Release IP Time of Disposition: 16:24 Quality Alfonzo Coma Scale Eyes: Open Verbal: Oriented and Alert Motor: Follows Commands Alfonzo Coma Total Score: 15
== END 2024-10-24 16:30 | disposition home or self-care (01) ==
PROVIDERS: Emergency Provider Registered Nurse; PCP Family Medicine
DX: K02.9 Dental caries, unspecified (principal); F17.210 Nicotine dependence, cigarettes, uncomplicated; K21.9 Gastro-esophageal reflux disease without esophagitis
CPT/HCPCS: 99213; G0463